=== PATIENT | female | born 1970 | race Two or more races ===

== ENCOUNTER 2020-08-07 21:22 | Emergency (ER) | payer OTHER ==
[~2020-08-07] VITALS: Ht 160 cm; Wt 72.6 kg
[2020-08-07 22:11] LABS: Basophils # (auto) 0.1 10 ^3/uL (0-0.2); Basophils % (auto) 0.8 % (0.0-2.0); Eosinophils # (auto) 0.2 10 ^3/uL (0-0.8); Eosinophils % (auto) 2.4 % (0.0-7.0); Hematocrit 39.5 % (36.0-46.0); Hemoglobin 13.5 g/dL (12.2-16.2); Lymphocytes # (auto) 2.3 10 ^3/uL (0.4-5.4); Lymphocytes % (auto) 29.3 % (10.0-50.0); Mean Corpuscular Hemoglobin 30.1 pg (28.0-32.0); Mean Corpuscular Hgb Conc. 34.1 g/dL (32.0-36.0); Monocytes # (auto) 0.7 10 ^3/uL (0-1.3); Neutrophils # (auto) 4.6 10 ^3/uL (1.6-8.6); Neutrophils % (auto) 58.5 % (37.0-80.0); Red Blood Cells 4.49 10^6/uL (4.0-5.20); Red Cell Distribution Width 13.2 % (11.8-14.3); White Blood Cell 7.8 10^3/uL (4.4-10.8)
[2020-08-07 22:21] LABS: Anion Gap 4 (5-15); BUN/Creatinine Ratio 19.2; Blood Urea Nitrogen 15 mg/dL (7-18); Calcium 9.4 mg/dL (8.5-10.1); Carbon Dioxide 26 mmol/L (21-32); Chloride 109 mmol/L (98-107); GFR African American 101 mL/min; GFR Non-African American 83 mL/min; Glucose 113 mg/dL (74-106); Sodium 139 mmol/L (136-145)
[2020-08-07 22:34] LABS: Urine Blood Negative /uL (Negative); Urine Specific Gravity 1.004 (1.001-1.035); Urine WBC 1 /hpf (0 - 5)
[2020-08-07 22:50] LABS: Urine Bacteria MOD /hpf (None Seen); Urine Hyaline Cast FEW /lpf (0 - 2)
[2020-08-08 03:22] VITALS: BP 149/83
== END 2020-08-08 04:22 | disposition home or self-care (01) ==
LOC: ER 21:28
DX: R07.89 Other chest pain (principal); R00.2 Palpitations; I10 Essential (primary) hypertension; R11.2 Nausea with vomiting, unspecified; R05 Cough
CPT/HCPCS: 36415; 71045; 80048; 81001; 81025; 84443; 84484; 85025; 85379; 93005